=== PATIENT | female | born 1995 | race Caucasian/White ===

== ENCOUNTER 2017-07-29 14:02 | Emergency (ER) | payer OTHER, BC ==
[~2017-07-29] VITALS: Ht 157.5 cm; Wt 63.5 kg
[2017-07-29 14:21] VITALS: BP 144/82
[2017-07-29] MEDS ORDERED: METH4TAB2 PO (15:16)
[2017-07-29] MEDS ORDERED: NAPR500T4 PO (15:16)
[2017-07-29] MEDS ORDERED: CYCL10TA2 PO (15:16)
--- NOTE | 2017-07-29 15:16 | PHYS DOC ---
Past Medical History Past Medical History: No Pertinent History Past Surgical History: Other Additional Past Surgical Histo: CLEFT PALATE Alcohol Use: Occasionally Drug Use: None Adult General Chief Complaint Chief Complaint: CHEST WALL PAIN HPI HPI Patient is a 22 year old female who presents with 10/10 bilateral anterior chest wall pain that began yesterday while working, she describes the pain as sharp and intermittent. Patient states she works at [employer] where she does a lot of heavy lifting. Patient states her pain began while lifting items at work. Patient states she's had similar pain before from heavy lifting at work and was treated with a couple medications including anti- inflammatories. Patient states her pain is worse when she tries to lift heavy items. Review of Systems Review of Systems Constitutional: Denies fever or chills [] Eyes: Denies change in visual acuity, redness, or eye pain [] HENT: Denies nasal congestion or sore throat [] Respiratory: Denies cough or shortness of breath [] Cardiovascular: chest pain GI: Denies abdominal pain, nausea, vomiting, bloody stools or diarrhea [] : Denies dysuria or hematuria [] Musculoskeletal: Denies back pain or joint pain [] Integument: Denies rash or skin lesions [] Neurologic: Denies headache, focal weakness or sensory changes [] All other systems were reviewed and found to be within normal limits, except as documented in this note. Physical Exam Physical Exam Constitutional: Well developed, well nourished, no acute distress, non-toxic appearance. [] HENT: Normocephalic, atraumatic, bilateral external ears normal, oropharynx moist, no oral exudates, nose normal. [] Eyes: PERRLA, EOMI, conjunctiva normal, no discharge. [] Neck: Normal range of motion, no tenderness, supple, no stridor. [] Cardiovascular:Heart rate regular rhythm, no murmur [] Lungs & Thorax: Bilateral breath sounds clear to auscultation [] Abdomen: Bowel sounds normal, soft, no tenderness, no masses, no pulsatile masses. [] Skin: Warm, dry, no erythema, no rash. [] Back: No tenderness, no CVA tenderness. [] Extremities: No tenderness, no cyanosis, no clubbing, ROM intact, no edema. [] Neurologic: Alert and oriented X 3, normal motor function, normal sensory function, no focal deficits noted. [] Psychologic: Affect normal, judgement normal, mood normal. [] Current Patient Data Vital Signs Vital Signs Date Time Temp Pulse Resp B/P (MAP) Pulse Ox O2 Delivery O2 Flow Rate FiO2 07/29/17 15:20 87 14 99 Room Air 07/29/17 14:21 98.4 98.4 EKG EKG [] Radiology/Procedures Radiology/Procedures [] Course & Med Decision Making Course & Med Decision Making Pertinent Labs and Imaging studies reviewed. (See chart for details) Patient is in the ED with chest wall muscle strain after heavy lifting at work. Will be discharged with cyclobenzaprine, naproxen and Medrol Dosepak. Follow-up with PCP in 1-2 weeks. [place] Disclaimer Dragon Disclaimer This electronic medical record was generated, in whole or in part, using a voice recognition dictation system. Departure Departure Impression: Primary Impression: Chest wall muscle strain Disposition: HOME, SELF-CARE Condition: STABLE Referrals: NO PCP (PCP) follow up with your doctor in one week Patient Instructions: Muscle Strain, [id number] Additional Instructions: You were seen with chest wall muscle strain. Take the prescribed medicines as ordered. Apply ice to the affected areas. Follow-up with your own doctor in one week. Scripts Cyclobenzaprine Hcl (CYCLOBENZAPRINE HCL) 10 Mg Tablet 1 TAB PO TID, #30 TAB Prov: THERESA SHORE APRN 07/29/17 Naproxen (NAPROXEN) 500 Mg Tablet 1 TAB PO BID, #30 TAB 0 Refills Prov: THERESA SHORE APRN 07/29/17 Methylprednisolone (MEDROL) 4 Mg Tab.ds.pk 1 PKG PO UD, #1 PKG Prov: THERESA SHORE APRN 07/29/17 Problem Qualifiers Primary Impression: Chest wall muscle strain Encounter type: initial encounter Qualified Codes: S29.011A - Strain of muscle and tendon of front wall of thorax, initial encounter THERESA SHORE APRN Jul 29, 2017 15:16
== END 2017-07-29 15:20 | disposition home or self-care (01) ==
LOC: ER 14:02
DX: S29.011A Strain of muscle and tendon of front wall of thorax, initial encounter (principal); Z87.730 Personal history of (corrected) cleft lip and palate; X58.XXXA Exposure to other specified factors, initial encounter; Y93.89 Activity, other specified; Y92.69 Other specified industrial and construction area as the place of occurrence of the external cause; Y99.8 Other external cause status
CPT/HCPCS: 99283